=== PATIENT | female | born 1985 | race African-American/Black ===

== ENCOUNTER 2017-09-16 16:51 | Emergency (ER) | payer OTHER ==
[~2017-09-16] VITALS: Ht 165.1 cm; Wt 88.6 kg
[2017-09-16] MEDS ORDERED: IBUPROFEN 800 MG TABLET PO ONE (17:45)
[2017-09-16 19:00] LABS: INFLUENZA TYPE A NEGATIVE FOR TYPE A (NEGATIVE); INFLUENZA TYPE B NEGATIVE FOR TYPE B (NEGATIVE)
[2017-09-16 19:01] LABS: RAPID GROUP A STREP NEGATIVE (NEGATIVE)
[2017-09-16 19:14] VITALS: BP 122/74
== END 2017-09-16 20:11 | disposition home or self-care (01) ==
LOC: EMS 16:53
DX: S63.501A Unspecified sprain of right wrist, initial encounter (principal); J06.9 Acute upper respiratory infection, unspecified; M79.644 Pain in right finger(s); J02.9 Acute pharyngitis, unspecified; J45.909 Unspecified asthma, uncomplicated; K21.9 Gastro-esophageal reflux disease without esophagitis; F12.10 Cannabis abuse, uncomplicated; F17.210 Nicotine dependence, cigarettes, uncomplicated; Z88.5 Allergy status to narcotic agent; W18.30XA Fall on same level, unspecified, initial encounter; Y93.89 Activity, other specified; Y92.89 Other specified places as the place of occurrence of the external cause; Y99.8 Other external cause status
CPT/HCPCS: 87430; 87804; 99285

== ENCOUNTER 2019-06-25 00:28 | Emergency (ER) | payer OTHER ==
[~2019-06-25] VITALS: Ht 162.6 cm; Wt 75.0 kg
[2019-06-25] MEDS ORDERED: BACL10TA PO (00:35)
[2019-06-25] MEDS ORDERED: OMEP20 PO (00:35)
[2019-06-25 01:24] LABS: APPEARANCE,URINE CLOUDY (CLEAR); BILIRUBIN,URINE NEGATIVE (NEGATIVE); GLUCOSE, URINE (UA) NEGATIVE (NEGATIVE); KETONES,URINE NEGATIVE (NEGATIVE); LEUKOCYTE ESTERASE ,URINE TRACE (NEGATIVE); NITRATE,URINE NEGATIVE (NEGATIVE); OCCULT BLOOD,URINE NEGATIVE (NEGATIVE); PROTEIN,URINE NEGATIVE (NEGATIVE); UROBILINOGEN,URINE 0.2 mg/dL (<=1.0)
[2019-06-25 02:05] LABS: BACTERIA,URINE None Seen /HPF (None Seen); RBC,URINE 0-2 /HPF (0-2)
[2019-06-25 02:06] LABS: SQUAMOUS EPITHELIAL CELL,UR Moderate /LPF (None Seen)
[2019-06-25 06:40] VITALS: BP 113/66
[2019-06-25] MEDS ORDERED: CYCLOBENZAPRINE HCL 10 MG TABLET PO ONE (06:45)
[2019-06-25] MEDS ORDERED: KETOROLAC TROMETHAMINE 30 MG/ML VIAL IM ONE (06:45)
== END 2019-06-25 07:10 | disposition home or self-care (01) ==
LOC: EMS 00:30
DX: M54.5 Low back pain (principal); F17.210 Nicotine dependence, cigarettes, uncomplicated; J45.909 Unspecified asthma, uncomplicated; Z88.5 Allergy status to narcotic agent; Z79.899 Other long term (current) drug therapy
CPT/HCPCS: 81001; 84703; 96372; 99283; J1885

== ENCOUNTER 2019-06-25 15:56 | Emergency (ER) | payer OTHER ==
[~2019-06-25] VITALS: Ht 162.6 cm; Wt 75.0 kg
[~2019-06-25 15:56] MED LIST: BACL10TA PO; OMEP20 PO
[2019-06-25] MEDS ORDERED: LORazepam 2 MG TABLET PO ONE (16:15)
[2019-06-25 16:34] LABS: BASOPHILS % (AUTO) 0.9 % (0.0-2.0); EOSINOPHILS % (AUTO) 1.7 % (1.0-6.0); HEMATOCRIT 39.4 % (36-46); HEMOGLOBIN 12.7 g/dL (12.0-16.0); LYMPHOCYTES # (AUTO) 2.8 K/uL (1.0-4.8); LYMPHOCYTES % (AUTO) 28.3 % (22.0-44.0); MEAN CORPUSCULAR HGB CONC 32.3 G/dL (31.0-37.0); MEAN CORPUSCULAR VOLUME 77 fL (80-100); MONOCYTES # (AUTO) 0.9 K/uL (0.1-1.0); MONOCYTES % (AUTO) 9.5 % (2.0-9.0); NEUTROPHILS # (AUTO) 5.8 K/uL (1.8-7.7); NEUTROPHILS % (AUTO) 59.6 % (40.0-70.0); PLATELET COUNT (AUTO) 243 K/uL (150-450); RED BLOOD CELL COUNT(AUTO) 5.09 MIL/uL (4.00-5.20); RED CELL DISTRIBUTION WIDTH 14.2 % (11.5-14.5)
[2019-06-25 16:44] LABS: ANION GAP 10 mmol/L (8-16); CALCIUM, TOTAL 9.1 mg/dL (8.8-10.5); CARBON DIOXIDE 23 mmol/L (22-29); CHLORIDE 104 mmol/L (98-107); CREATININE 1.16 mg/dL (0.60-1.30); GLOMERULAR FILTR. RATE CALC > 60 mL/min (>60); GLUCOSE,RANDOM 109 mg/dL (70-110); POTASSIUM 4.2 mmol/L (3.5-5.1); SODIUM SERUM 137 mmol/L (136-145); UREA NITROGEN, BLOOD 13 mg/dL (7-18)
[2019-06-25 16:50] LABS: ALANINE AMINOTRANSFERASE 23 U/L (12-78); ALBUMIN 3.6 g/dL (3.4-5.0); ALKALINE PHOSPHATASE 40 U/L (46-116); ASPARTATE AMINOTRANSFERASE 23 U/L (15-37); BILIRUBIN,TOTAL 0.3 mg/dL (0.1-1.0); TOTAL PROTEIN, SERUM 7.3 g/dL (6.4-8.2)
[2019-06-25 21:00] VITALS: BP 112/71
[2019-06-25 21:08] LABS: AMPHET/METH SCREEN,URINE POSITIVE (NEGATIVE); BARBITURATE SCREEN, URINE NEGATIVE (NEGATIVE); BENZODIAZEPINES SCREEN,URINE NEGATIVE (NEGATIVE); CANNABINOID SCREEN,URINE POSITIVE (NEGATIVE); COCAINE SCREEN,URINE NEGATIVE (NEGATIVE); METHADONE SCREEN, URINE NEGATIVE (NEGATIVE); OPIATE SCREEN,URINE NEGATIVE (NEGATIVE)
[2019-06-25 21:15] LABS: PHENCYCLIDINE SCREEN,URINE NEGATIVE (NEGATIVE)
== END 2019-06-25 23:03 | disposition home or self-care (01) ==
LOC: EMS 15:57
DX: F29 Unspecified psychosis not due to a substance or known physiological condition (principal); J45.909 Unspecified asthma, uncomplicated; K21.9 Gastro-esophageal reflux disease without esophagitis; F17.210 Nicotine dependence, cigarettes, uncomplicated; Z79.899 Other long term (current) drug therapy; Z88.5 Allergy status to narcotic agent; Z88.6 Allergy status to analgesic agent
CPT/HCPCS: 36415; 80053; 80307; 85025; 99284; G0480

== ENCOUNTER 2019-11-25 10:59 | Emergency (ER) | payer OTHER ==
[~2019-11-25] VITALS: Ht 165.1 cm; Wt 77.3 kg
[2019-11-25] MEDS ORDERED: AMOXICILLIN TRIHYDRATE 250 MG CAPSULE PO ONE (11:45)
[2019-11-25] MEDS ORDERED: KETOROLAC TROMETHAMINE 30 MG/ML VIAL IM ONE (11:45)
[2019-11-25 12:27] VITALS: BP 108/64
== END 2019-11-25 12:31 | disposition home or self-care (01) ==
LOC: EMS 11:00
DX: H66.91 Otitis media, unspecified, right ear (principal); J45.909 Unspecified asthma, uncomplicated; K21.9 Gastro-esophageal reflux disease without esophagitis; F17.210 Nicotine dependence, cigarettes, uncomplicated; Z88.5 Allergy status to narcotic agent
CPT/HCPCS: 96372; 99283; 99406; J1885

== ENCOUNTER 2019-12-28 12:09 | Inpatient (IN) | payer MEDICAID, OTHER ==
[~2019-12-28] VITALS: Ht 165.1 cm; Wt 78.4 kg
[~2019-12-28 12:09] MED LIST changes: -BACL10TA PO
[2019-12-28] MEDS ORDERED: HALOPERIDOL LACTATE 5 MG/ML VIAL IM ONE ×2 (13:15→14:30)
[2019-12-28] MEDS ORDERED: LORazepam 2 MG/ML VIAL IM ONE ×2 (13:15→14:30)
[2019-12-28] MEDS ORDERED: DiphenhydrAMINE HCL 50 MG/ML VIAL IM ONE ×2 (13:15→14:30)
[2019-12-28 13:40] LABS: AMPHET/METH SCREEN,URINE POSITIVE (NEGATIVE); BARBITURATE SCREEN, URINE NEGATIVE (NEGATIVE); BENZODIAZEPINES SCREEN,URINE NEGATIVE (NEGATIVE); CANNABINOID SCREEN,URINE POSITIVE (NEGATIVE); COCAINE SCREEN,URINE NEGATIVE (NEGATIVE); METHADONE SCREEN, URINE NEGATIVE (NEGATIVE); OPIATE SCREEN,URINE NEGATIVE (NEGATIVE)
[2019-12-28 13:42] LABS: PHENCYCLIDINE SCREEN,URINE NEGATIVE (NEGATIVE)
[2019-12-28 16:10] LABS: BASOPHILS % (AUTO) 0.7 % (0.0-2.0); EOSINOPHILS % (AUTO) 1.2 % (1.0-6.0); HEMOGLOBIN 13.2 g/dL (12.0-16.0); LYMPHOCYTES # (AUTO) 1.6 K/uL (1.0-4.8); LYMPHOCYTES % (AUTO) 24.4 % (22.0-44.0); MEAN CORPUSCULAR HEMOGLOBIN 24.5 pg (26.0-34.0); MEAN CORPUSCULAR HGB CONC 31.4 G/dL (31.0-37.0); MEAN CORPUSCULAR VOLUME 78 fL (80-100); MONOCYTES # (AUTO) 0.6 K/uL (0.1-1.0); MONOCYTES % (AUTO) 8.8 % (2.0-9.0); NEUTROPHILS # (AUTO) 4.4 K/uL (1.8-7.7); NEUTROPHILS % (AUTO) 64.9 % (40.0-70.0); PLATELET COUNT (AUTO) 208 K/uL (150-450); RED BLOOD CELL COUNT(AUTO) 5.38 MIL/uL (4.00-5.20); RED CELL DISTRIBUTION WIDTH 14.1 % (11.5-14.5)
[2019-12-28 16:11] LABS: ANION GAP 4 mmol/L (8-16); CALCIUM, TOTAL 8.7 mg/dL (8.8-10.5); CARBON DIOXIDE 30 mmol/L (22-29); CHLORIDE 105 mmol/L (98-107); CREATININE 0.93 mg/dL (0.60-1.30); GLOMERULAR FILTR. RATE CALC > 60 mL/min (>60); GLUCOSE,RANDOM 75 mg/dL (70-110); SODIUM SERUM 139 mmol/L (136-145); UREA NITROGEN, BLOOD 9 mg/dL (7-18)
[2019-12-28 16:16] LABS: ALANINE AMINOTRANSFERASE 27 U/L (12-78); ALBUMIN 3.3 g/dL (3.4-5.0); ALKALINE PHOSPHATASE 40 U/L (46-116); ASPARTATE AMINOTRANSFERASE 19 U/L (15-37); BILIRUBIN,TOTAL 0.2 mg/dL (0.1-1.0); TOTAL PROTEIN, SERUM 6.8 g/dL (6.4-8.2)
[2019-12-28] MEDS ORDERED: ZOLPIDEM TARTRATE 10 MG TABLET PO PRN (19:30)
[2019-12-28] MEDS ORDERED: LORazepam 2 MG TABLET PO PRN (19:30)
[2019-12-28] MEDS ORDERED: MAGNESIUM HYDROXIDE SUSPENSION 30 ML UDCUP PO PRN (19:30)
[2019-12-28] MEDS ORDERED: MAG HYDROX/AL HYDROX/SIMETH ES 30 ML SUSPENSION UDCUP PO PRN (19:30)
[2019-12-28] MEDS ORDERED: PROMETHAZINE HCL 25 MG TABLET PO PRN (19:30)
[2019-12-28] MEDS ORDERED: TUBERCULIN, PURIFIED PROTEIN DERIVATIVE 5 TU/0.1 ML SYRINGE ID ONE (19:30)
[2019-12-28] MEDS ORDERED: GuaiFENesin/D-METHORPHAN [SUGAR-FREE] 200-20MG/10 ML SYRUP UDCUP PO PRN (19:30)
[2019-12-28] MEDS ORDERED: LOPERAMIDE HCL 2 MG CAPSULE PO PRN (19:30)
[2019-12-28] MEDS ORDERED: OLANZapine 5 MG RAPDIS TABLET PO PRN (19:30)
[2019-12-28] MEDS ORDERED: HydrOXYzine PAMOATE 50 MG CAPSULE PO PRN (19:30)
[2019-12-28] MEDS ORDERED: ACETAMINOPHEN 325 MG TABLET PO PRN (19:30)
[2019-12-28] MEDS ORDERED: OLANZapine 5 MG RAPDIS TABLET PO SCH (21:00)
[2019-12-28 21:52] VITALS: BP 106/76
[2019-12-28] MEDS ORDERED: PNEUMOCOCCAL VACCINE POLYVALENT 0.5 ML VIAL [PPSV23] IM ONE (22:15)
[2019-12-28] MEDS: THIAMINE HCL 100 MG TABLET PO SCH (22:42)
[2019-12-29 07:22] LABS: HEMOGLOBIN A1C 5.8 % (3.8-5.6)
[2019-12-29 07:39] LABS: CHOL/HDL RATIO 2.3 (3.9-5.7); FREE T4 (FREE THYROXINE) 1.15 ng/dL (0.76-1.46); THYROID STIMULATING HORMONE 1.68 uIU/mL (0.36-3.74)
[2019-12-29 08:00] VITALS: BP 103/62
[2019-12-29] MEDS: MULTIVITAMINS WITH MINERALS, THERAPEUTIC TABLET PO SCH (09:21)
[2019-12-29] MEDS: FLUoxetine HCL 20 MG CAPSULE PO SCH (09:21)
[2019-12-29] MEDS: NALTREXONE HCL 50 MG TABLET PO SCH (09:21)
[2019-12-29] MEDS: FOLIC ACID 1 MG TABLET PO SCH (09:21)
[2019-12-29] MEDS: THIAMINE HCL 100 MG TABLET PO SCH ×2 (09:21→16:29)
[2019-12-29 17:04] VITALS: BP 110/66
[2019-12-29] MEDS: OLANZapine 10 MG RAPDIS TABLET PO SCH (20:35)
[2019-12-30] MEDS: FLUoxetine HCL 20 MG CAPSULE PO SCH ×2 (09:00→10:45)
[2019-12-30] MEDS: NALTREXONE HCL 50 MG TABLET PO SCH ×2 (09:00→10:45)
[2019-12-30] MEDS: FOLIC ACID 1 MG TABLET PO SCH ×2 (09:00→10:45)
[2019-12-30] MEDS: MULTIVITAMINS WITH MINERALS, THERAPEUTIC TABLET PO SCH ×2 (09:00→10:45)
[2019-12-30] MEDS: THIAMINE HCL 100 MG TABLET PO SCH ×4 (09:00→17:20)
[2019-12-30] MEDS ORDERED: DiphenhydrAMINE HCL 50 MG/ML VIAL ONE (13:53)
[2019-12-30] MEDS ORDERED: DiphenhydrAMINE HCL 50 MG/ML VIAL IM ONE (14:00)
[2019-12-30] MEDS ORDERED: LORazepam 2 MG/ML VIAL IM ONE (14:00)
[2019-12-30] MEDS ORDERED: HALOPERIDOL LACTATE 5 MG/ML VIAL IM ONE (14:00)
[2019-12-30] MEDS: OLANZapine 10 MG RAPDIS TABLET PO SCH (21:11)
[2019-12-31] MEDS: NALTREXONE HCL 50 MG TABLET PO SCH (09:00)
[2019-12-31] MEDS: FOLIC ACID 1 MG TABLET PO SCH (09:00)
[2019-12-31] MEDS: FLUoxetine HCL 20 MG CAPSULE PO SCH (09:00)
[2019-12-31] MEDS: THIAMINE HCL 100 MG TABLET PO SCH ×3 (09:00→17:00)
[2019-12-31] MEDS: MULTIVITAMINS WITH MINERALS, THERAPEUTIC TABLET PO SCH (09:00)
[2019-12-31] MEDS ORDERED: LORazepam 2 MG/ML VIAL ONE (12:36)
[2019-12-31] MEDS ORDERED: DiphenhydrAMINE HCL 50 MG/ML VIAL ONE (12:36)
[2019-12-31] MEDS ORDERED: HALOPERIDOL LACTATE 5 MG/ML VIAL ONE (12:36)
[2019-12-31] MEDS ORDERED: DiphenhydrAMINE HCL 50 MG/ML VIAL IM ONE (12:45)
[2019-12-31] MEDS ORDERED: HALOPERIDOL LACTATE 5 MG/ML VIAL IM ONE (12:45)
[2019-12-31] MEDS ORDERED: LORazepam 2 MG/ML VIAL IM ONE (12:45)
[2019-12-31 19:24] VITALS: BP 98/62
[2019-12-31] MEDS: OLANZapine 10 MG RAPDIS TABLET PO SCH (21:00)
[2020-01-01] MEDS: FLUoxetine HCL 20 MG CAPSULE PO SCH (09:00)
[2020-01-01] MEDS: MULTIVITAMINS WITH MINERALS, THERAPEUTIC TABLET PO SCH (09:00)
[2020-01-01] MEDS: NALTREXONE HCL 50 MG TABLET PO SCH (09:00)
[2020-01-01] MEDS: FOLIC ACID 1 MG TABLET PO SCH (09:00)
[2020-01-01] MEDS: THIAMINE HCL 100 MG TABLET PO SCH ×2 (09:00→16:52)
[2020-01-01 17:26] VITALS: BP 111/79
[2020-01-01] MEDS: OLANZapine 10 MG RAPDIS TABLET PO SCH (21:06)
[2020-01-02 08:00] VITALS: BP 86/56
[2020-01-02] MEDS: FLUoxetine HCL 20 MG CAPSULE PO SCH (09:00)
[2020-01-02] MEDS: MULTIVITAMINS WITH MINERALS, THERAPEUTIC TABLET PO SCH (09:00)
[2020-01-02] MEDS: THIAMINE HCL 100 MG TABLET PO SCH ×2 (09:00→16:24)
[2020-01-02] MEDS: FOLIC ACID 1 MG TABLET PO SCH (09:00)
[2020-01-02] MEDS: NALTREXONE HCL 50 MG TABLET PO SCH (09:00)
[2020-01-02 10:55] VITALS: BP 96/49
[2020-01-02 16:46] VITALS: BP 115/63
[2020-01-02] MEDS: OLANZapine 10 MG RAPDIS TABLET PO SCH (20:28)
[2020-01-03 08:37] VITALS: BP 100/60
[2020-01-03] MEDS: FLUoxetine HCL 20 MG CAPSULE PO SCH (09:00)
[2020-01-03] MEDS: NALTREXONE HCL 50 MG TABLET PO SCH (09:00)
[2020-01-03] MEDS: THIAMINE HCL 100 MG TABLET PO SCH ×3 (09:00→16:59)
[2020-01-03] MEDS: FOLIC ACID 1 MG TABLET PO SCH (09:00)
[2020-01-03] MEDS: MULTIVITAMINS WITH MINERALS, THERAPEUTIC TABLET PO SCH (09:00)
[2020-01-03 16:32] VITALS: BP 103/60
[2020-01-03] MEDS: OLANZapine 10 MG RAPDIS TABLET PO SCH (20:12)
[2020-01-04] MEDS: NALTREXONE HCL 50 MG TABLET PO SCH (09:00)
[2020-01-04] MEDS: FLUoxetine HCL 20 MG CAPSULE PO SCH (09:00)
[2020-01-04] MEDS: FOLIC ACID 1 MG TABLET PO SCH (09:59)
[2020-01-04] MEDS: THIAMINE HCL 100 MG TABLET PO SCH ×2 (09:59→16:36)
[2020-01-04] MEDS: MULTIVITAMINS WITH MINERALS, THERAPEUTIC TABLET PO SCH (09:59)
[2020-01-04 11:52] VITALS: BP 116/80
[2020-01-04 16:51] VITALS: BP 115/70
[2020-01-04] MEDS: OLANZapine 10 MG RAPDIS TABLET PO SCH (21:05)
[2020-01-04] MEDS ORDERED: PALIPERIDONE 1.5 MG ER TABLET PO PRN (21:15)
[2020-01-04] MEDS ORDERED: PALIPERIDONE PALMITATE 234 MG/1.5 ML SYRINGE IM ONE (22:00)
[2020-01-05] MEDS: FLUoxetine HCL 20 MG CAPSULE PO SCH (09:00)
[2020-01-05] MEDS: FOLIC ACID 1 MG TABLET PO SCH (09:17)
[2020-01-05] MEDS: NALTREXONE HCL 50 MG TABLET PO SCH (09:17)
[2020-01-05] MEDS: MULTIVITAMINS WITH MINERALS, THERAPEUTIC TABLET PO SCH (09:17)
[2020-01-05] MEDS: THIAMINE HCL 100 MG TABLET PO SCH ×2 (09:17→16:12)
[2020-01-05] MEDS ORDERED: PALIPERIDONE PALMITATE 234 MG/1.5 ML SYRINGE IM ONE (09:45)
[2020-01-05 12:07] VITALS: BP 100/62
[2020-01-05 16:40] VITALS: BP 94/60
[2020-01-05] MEDS: PALIPERIDONE 3 MG ER TABLET PO SCH (20:11)
[2020-01-05 21:59] VITALS: BP 100/64
[2020-01-06 08:00] VITALS: BP 109/51
[2020-01-06] MEDS: NALTREXONE HCL 50 MG TABLET PO SCH (09:08)
[2020-01-06] MEDS: THIAMINE HCL 100 MG TABLET PO SCH ×2 (09:08→16:27)
[2020-01-06] MEDS: FOLIC ACID 1 MG TABLET PO SCH (09:08)
[2020-01-06] MEDS: FLUoxetine HCL 20 MG CAPSULE PO SCH (09:08)
[2020-01-06] MEDS: MULTIVITAMINS WITH MINERALS, THERAPEUTIC TABLET PO SCH (09:08)
[2020-01-06 17:08] VITALS: BP 107/78
[2020-01-06] MEDS ORDERED: LORazepam 2 MG/ML VIAL ONE (18:29)
[2020-01-06] MEDS ORDERED: HALOPERIDOL LACTATE 5 MG/ML VIAL IM ONE (18:30)
[2020-01-06] MEDS ORDERED: LORazepam 2 MG/ML VIAL IM ONE (18:30)
[2020-01-06] MEDS ORDERED: DiphenhydrAMINE HCL 50 MG/ML VIAL IM ONE (18:30)
[2020-01-06] MEDS: PALIPERIDONE 3 MG ER TABLET PO SCH (21:00)
[2020-01-07 08:00] VITALS: BP 132/76
[2020-01-07] MEDS: MULTIVITAMINS WITH MINERALS, THERAPEUTIC TABLET PO SCH (09:00)
[2020-01-07] MEDS: FOLIC ACID 1 MG TABLET PO SCH (09:00)
[2020-01-07] MEDS: THIAMINE HCL 100 MG TABLET PO SCH (09:00)
[2020-01-07] MEDS: NALTREXONE HCL 50 MG TABLET PO SCH (09:00)
[2020-01-07] MEDS: FLUoxetine HCL 20 MG CAPSULE PO SCH (09:00)
[2020-01-07 16:46] VITALS: BP 113/77
[2020-01-07] MEDS ORDERED: FLUO-191 PO (18:56)
[2020-01-07] MEDS ORDERED: NALT50TA PO (18:56)
[2020-01-07] MEDS ORDERED: PALI117D IM (18:56)
[2020-01-08] MEDS: NALTREXONE HCL 50 MG TABLET PO SCH (08:53)
[2020-01-08] MEDS: MULTIVITAMINS WITH MINERALS, THERAPEUTIC TABLET PO SCH (08:53)
[2020-01-08] MEDS: FLUoxetine HCL 20 MG CAPSULE PO SCH (08:53)
[2020-01-08] MEDS ORDERED: PALIPERIDONE PALMITATE 156 MG/ML SYRINGE IM ONE (09:00)
[2020-01-08 09:08] VITALS: BP 119/65
== END 2020-01-08 11:45 | disposition home or self-care (01) | DRG 885 ==
LOC: EMS 12:10 → 3EI 20:18 → 3EC 01-01 14:30
PROVIDERS: ADMIT Psychiatry & Neurology Psychiatry; ATTEND Psychiatry & Neurology Psychiatry
DX: F25.9 Schizoaffective disorder, unspecified (principal); E46 Unspecified protein-calorie malnutrition; R45.851 Suicidal ideations; D64.9 Anemia, unspecified; F12.90 Cannabis use, unspecified, uncomplicated; F15.90 Other stimulant use, unspecified, uncomplicated; F17.210 Nicotine dependence, cigarettes, uncomplicated; F60.0 Paranoid personality disorder; J45.909 Unspecified asthma, uncomplicated; K21.9 Gastro-esophageal reflux disease without esophagitis; Z65.3 Problems related to other legal circumstances; Z68.28 Body mass index [BMI] 28.0-28.9, adult; Z91.19 Patient's noncompliance with other medical treatment and regimen; Z88.5 Allergy status to narcotic agent; Z88.8 Allergy status to other drugs, medicaments and biological substances; Z63.9 Problem related to primary support group, unspecified; Z91.14 Patient's other noncompliance with medication regimen
CPT/HCPCS: 83036; 84439; 84443; 86592; 99291; G0480; J1200; J1630; J2060

== ENCOUNTER 2020-01-11 15:50 | Emergency (ER) | payer MEDICAID, OTHER ==
[~2020-01-11] VITALS: Ht 165.1 cm; Wt 75.5 kg
[~2020-01-11 15:50] MED LIST changes: +FLUO-191 PO; +NALT50TA PO; -OMEP20 PO; +PALI117D IM
[2020-01-11] MEDS ORDERED: SODIUM PHOS/SODIUM BIPHOS 133 ML ENEMA PR ONE (17:00)
[2020-01-11] MEDS ORDERED: MAGNESIUM CITRATE 300 ML ORAL SOLUTION PO ONE (17:00)
[2020-01-11 17:20] VITALS: BP 126/75
== END 2020-01-11 17:36 | disposition home or self-care (01) ==
LOC: EMS 16:05
DX: K59.00 Constipation, unspecified (principal); F17.210 Nicotine dependence, cigarettes, uncomplicated; J45.909 Unspecified asthma, uncomplicated; K21.9 Gastro-esophageal reflux disease without esophagitis; Z88.5 Allergy status to narcotic agent
CPT/HCPCS: 99406

== ENCOUNTER 2020-03-03 03:02 | Emergency (ER) | payer OTHER ==
[~2020-03-03] VITALS: Ht 165.1 cm; Wt 81.8 kg
[2020-03-03 04:32] LABS: ANION GAP 8 mmol/L (8-16); CALCIUM, TOTAL 8.6 mg/dL (8.8-10.5); CARBON DIOXIDE 28 mmol/L (22-29); CHLORIDE 103 mmol/L (98-107); CREATININE 0.96 mg/dL (0.60-1.30); GLOMERULAR FILTR. RATE CALC > 60 mL/min (>60); GLUCOSE,RANDOM 96 mg/dL (70-110); POTASSIUM 3.5 mmol/L (3.5-5.1); SODIUM SERUM 139 mmol/L (136-145); UREA NITROGEN, BLOOD 9 mg/dL (7-18)
[2020-03-03 04:34] LABS: EOSINOPHILS % (AUTO) 2.5 % (1.0-6.0); HEMOGLOBIN 12.9 g/dL (12.0-16.0); LYMPHOCYTES % (AUTO) 24.1 % (22.0-44.0); MEAN CORPUSCULAR HEMOGLOBIN 25.3 pg (26.0-34.0); MEAN CORPUSCULAR HGB CONC 32.3 G/dL (31.0-37.0); MEAN CORPUSCULAR VOLUME 78 fL (80-100); MONOCYTES # (AUTO) 0.8 K/uL (0.1-1.0); MONOCYTES % (AUTO) 10.3 % (2.0-9.0); NEUTROPHILS % (AUTO) 62.1 % (40.0-70.0); PLATELET COUNT (AUTO) 233 K/uL (150-450); RED BLOOD CELL COUNT(AUTO) 5.11 MIL/uL (4.00-5.20); RED CELL DISTRIBUTION WIDTH 14.4 % (11.5-14.5)
[2020-03-03 04:35] LABS: INR 1.1 (0.9-1.1)
[2020-03-03 04:35] LABS: APPEARANCE,URINE CLEAR (CLEAR); BILIRUBIN,URINE NEGATIVE (NEGATIVE); GLUCOSE, URINE (UA) NEGATIVE (NEGATIVE); KETONES,URINE TRACE mg/dL (NEGATIVE); LEUKOCYTE ESTERASE ,URINE MODERATE (NEGATIVE); NITRATE,URINE NEGATIVE (NEGATIVE); OCCULT BLOOD,URINE NEGATIVE (NEGATIVE); PROTEIN,URINE TRACE (NEGATIVE)
[2020-03-03] MEDS: HydrOXYzine HCL 50 MG TABLET PO ONE (04:37)
[2020-03-03 04:58] LABS: ALANINE AMINOTRANSFERASE 23 U/L (12-78); ALBUMIN 3.7 g/dL (3.4-5.0); ALKALINE PHOSPHATASE 47 U/L (46-116); ASPARTATE AMINOTRANSFERASE 20 U/L (15-37); BILIRUBIN,TOTAL 0.5 mg/dL (0.1-1.0); CREATINE KINASE, TOTAL ONLY 319 U/L (26-192); HCG,QUANTITATIVE < 1 mIU/mL (0-6); TOTAL PROTEIN, SERUM 7.5 g/dL (6.4-8.2)
[2020-03-03 05:01] LABS: B-TYPE NATRIURETIC PEPTIDE < 4 pg/mL (0-100)
[2020-03-03 05:09] LABS: BACTERIA,URINE Few /HPF (None Seen); RBC,URINE None Seen /HPF (0-2); SQUAMOUS EPITHELIAL CELL,UR Few /LPF (None Seen); YEAST,URINE None Seen /HPF (None Seen)
[2020-03-03 05:10] LABS: CALCIUM OXALATE CRYSTALS,UR Few /LPF (None Seen)
[2020-03-03 05:32] VITALS: BP 112/60
[2020-03-03] MEDS: LORazepam 1 MG TABLET PO ONE (05:59)
[2020-03-03] MEDS: PALIPERIDONE PALMITATE 117 MG/0.75 ML SYRINGE IM ONE (05:59)
== END 2020-03-03 06:10 | disposition home or self-care (01) ==
LOC: EMS 03:02
DX: R06.02 Shortness of breath (principal); R07.89 Other chest pain; F41.9 Anxiety disorder, unspecified; J45.909 Unspecified asthma, uncomplicated; K21.9 Gastro-esophageal reflux disease without esophagitis; F17.210 Nicotine dependence, cigarettes, uncomplicated; Z88.5 Allergy status to narcotic agent
CPT/HCPCS: 36415; 71045; 80053; 81001; 82550; 83880; 84484; 84702; 85025; 85610; 85730; 93005; 96372; 99285; J2426

== ENCOUNTER 2020-03-13 10:14 | Emergency (ER) | payer OTHER ==
[~2020-03-13] VITALS: Ht 172.7 cm; Wt 100.0 kg
[~2020-03-13 10:14] MED LIST changes: -FLUO-191 PO; -NALT50TA PO
[2020-03-13] MEDS ORDERED: LORazepam 1 MG TABLET PO ONE (11:30)
[2020-03-13] MEDS ORDERED: ALBUTEROL SULFATE HFA 90 MCG/PUFF 8 GM INHALER IH ONE (11:30)
[2020-03-13 13:01] VITALS: BP 116/70
== END 2020-03-13 13:23 | disposition home or self-care (01) ==
LOC: EMS 10:14
DX: J45.909 Unspecified asthma, uncomplicated (principal); F41.9 Anxiety disorder, unspecified; K21.9 Gastro-esophageal reflux disease without esophagitis; F17.210 Nicotine dependence, cigarettes, uncomplicated; Z88.5 Allergy status to narcotic agent
CPT/HCPCS: 94640; J3535

== ENCOUNTER 2021-04-01 07:10 | Emergency (ER) | payer OTHER ==
[~2021-04-01] VITALS: Ht 165.1 cm; Wt 140.9 kg
[2021-04-01 07:23] VITALS: BP 119/75
[2021-04-01] MEDS ORDERED: GABA-1181 PO (08:10)
[2021-04-01] MEDS ORDERED: KETOROLAC TROMETHAMINE 60 MG/2 ML VIAL IM ONE (10:00)
[2021-04-01 10:18] LABS: EOSINOPHILS % (AUTO) 2.1 % (1.0-6.0); HEMATOCRIT 41.5 % (36-46); HEMOGLOBIN 13.1 g/dL (12.0-16.0); MEAN CORPUSCULAR HEMOGLOBIN 23.7 pg (26.0-34.0); MEAN CORPUSCULAR HGB CONC 31.5 G/dL (31.0-37.0); MEAN CORPUSCULAR VOLUME 75 fL (80-100); MONOCYTES # (AUTO) 0.9 K/uL (0.1-1.0); NEUTROPHILS # (AUTO) 6.2 K/uL (1.8-7.7); NEUTROPHILS % (AUTO) 65.9 % (40.0-70.0); PLATELET COUNT (AUTO) 239 K/uL (150-450); RED BLOOD CELL COUNT(AUTO) 5.53 MIL/uL (4.00-5.20); RED CELL DISTRIBUTION WIDTH 14.5 % (11.5-14.5)
[2021-04-01 10:28] LABS: ANION GAP 7 mmol/L (8-16); CALCIUM, TOTAL 8.1 mg/dL (8.8-10.5); CARBON DIOXIDE 28 mmol/L (22-29); CHLORIDE 104 mmol/L (98-107); CREATININE 0.94 mg/dL (0.60-1.30); GLOMERULAR FILTR. RATE CALC > 60 mL/min (>60); GLUCOSE,RANDOM 94 mg/dL (70-110); POTASSIUM 4.4 mmol/L (3.5-5.1); SODIUM SERUM 139 mmol/L (136-145); UREA NITROGEN, BLOOD 10 mg/dL (7-18)
[2021-04-01 10:42] LABS: ALANINE AMINOTRANSFERASE 15 U/L (12-78); ALBUMIN 2.5 g/dL (3.4-5.0); ALKALINE PHOSPHATASE 62 U/L (46-116); ASPARTATE AMINOTRANSFERASE 15 U/L (15-37); BILIRUBIN,TOTAL 0.2 mg/dL (0.1-1.0); HCG,QUANTITATIVE < 1 mIU/mL (0-6); TOTAL PROTEIN, SERUM 6.8 g/dL (6.4-8.2)
== END 2021-04-01 12:26 | disposition home or self-care (01) ==
LOC: EMS 08:00
DX: S39.012A Strain of muscle, fascia and tendon of lower back, initial encounter (principal); J45.909 Unspecified asthma, uncomplicated; X58.XXXA Exposure to other specified factors, initial encounter; Y93.89 Activity, other specified; Y92.89 Other specified places as the place of occurrence of the external cause; Y99.8 Other external cause status
CPT/HCPCS: 36415; 80053; 84702; 85025; 96372; 99283; J1885

== ENCOUNTER 2021-04-19 05:47 | Emergency (ER) | payer OTHER ==
[~2021-04-19] VITALS: Ht 165.1 cm; Wt 118.2 kg
[~2021-04-19 05:47] MED LIST changes: +GABA-1181 PO; -PALI117D IM
[2021-04-19] MEDS ORDERED: OMEP10 PO (05:54)
[2021-04-19 06:25] VITALS: BP 116/83
== END 2021-04-19 06:39 | disposition home or self-care (01) ==
LOC: EDUNIT# 05:47 → EMS 05:48
DX: H93.11 Tinnitus, right ear (principal); J45.909 Unspecified asthma, uncomplicated; K21.9 Gastro-esophageal reflux disease without esophagitis; F41.9 Anxiety disorder, unspecified; F17.210 Nicotine dependence, cigarettes, uncomplicated; Z88.5 Allergy status to narcotic agent
CPT/HCPCS: 99283; Z7502